=== PATIENT | female | born 1975 | race Asian ===

== ENCOUNTER 2020-10-08 19:30 | Emergency (ER) | payer BC ==
--- NOTE | 2020-10-08 19:45 | ED Physician Documentation ---
PD HPI FEMALE - Stated complaint Stated Complaint: FEMALE - Chief complaint Chief Complaint: Abd Pain - History obtained from History obtained from: Patient - History of Present Illness Timing - onset: How many hours ago (3) Timing - duration: Hours (3) Timing - details: Abrupt onset, Still present Associated symptoms: Vaginal bleeding (She had hysteroscopy about noon today in evaluation of infertility with clearing some scarring and had biopsies. No bleeding at the time. Onset bleeding vaginally 2 pads/hour few hours later. No pelvic cramping.). No: Fever Contributing factors: Other (s/p hysteroscopy today) Similar symptoms before: Has not had sx before Recently seen: Surgery (today) Review of Systems Constitutional: denies: Fever, Chills Nose: denies: Rhinorrhea / runny nose, Congestion Throat: denies: Sore throat Respiratory: denies: Cough : reports: Vaginal bleeding (just today last few hours.). denies: Dysuria, Discharge Neurologic: denies: Generalized weakness, Near syncope PD PAST MEDICAL HISTORY - Past Medical History Cardiovascular: None Respiratory: None Neuro: None Endocrine/Autoimmune: None HAND COLLATOR: Other (infertility) - Allergies Allergies/Adverse Reactions: Allergies Allergy/AdvReac Type Severity Reaction Status Date / Time No Known Drug Allergies Allergy Verified 10/08/20 19:49 - Living Situation Living Situation: reports: With spouse/s.o. 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 There are 2 tenaculum wounds, one at 7 o'clock with minimal bleeding and is point size. 2 o'clock position with 5 mm size laceration with ongoing dribble of bleeding. No FB. ) - Rectal Rectal: Deferred - Back Back: No CVA TTP - Derm Derm: Normal color, Warm and dry Results - Vitals Vitals: Vital Signs - 24 hr 10/08/20 10/08/20 19:37 23:31 Temperature 37.0 C 36.8 C Heart Rate 71 73 Respiratory 18 16 Rate Blood Pressure 122/71 117/67 O2 Saturation 99 100 Oxygen O2 Source Room air - Labs Labs: Laboratory Tests 10/08/20 10/08/20 10/08/20 20:08 20:08 20:08 WBC 8.0 RBC 4.74 Hgb 12.0 Hct 37.9 MCV 80.0 L MCH 25.3 L MCHC 31.7 L RDW 13.2 Plt Count 310 MPV 8.6 Neut # (Auto) 5.3 Lymph # (Auto) 2.2 [place] # (Auto) 0.3 Eos # (Auto) 0.1 Baso # (Auto) 0.0 Absolute Nucleated RBC 0.00 Nucleated RBC % 0.0 PT 10.7 INR 1.0 Sodium 136 Potassium 3.8 Chloride 105 Carbon Dioxide 24 Anion Gap 7.0 BUN 10 Creatinine 0.9 Estimated GFR (MDRD) 68 L Glucose 107 H Calcium 9.1 Total Bilirubin 0.5 AST 13 ALT < 10 L Alkaline Phosphatase 22 L Total Protein 7.0 Albumin 4.0 Globulin 3.0 Albumin/Globulin Ratio 1.3 Lipase 26 Procedures - General procedure General procedure: 4 byI tried direct pressure with 4 pads on a ring forcep as well as tranexamic acid on gauze held directly and then left in place for 15 minutes. It was decreased in the amount of bleeding and silver nitrate with then direct cotton- tipped applicator allowed for apparent stopping of bleeding. We watched her for than 15 or 20 minutes and did another speculum exam which showed the vault full with blood and clots again. I repeated the procedures but could not get it to fully stopped bleeding. It has decreased significantly but is still oozing bleeding. We will consult gynecology and see if they have other sealant/cautery such as Monsel solution which would likely work well. PD MEDICAL DECISION MAKING - ED course Complexity details: re-evaluated patient (The patient still had some bleeding after local direct pressure as well as silver nitrate cautery and direct application of TXA to the site. I would have liked some Monsel solution as this would likely work well there. We will consult to gynecology.), considered differential (consider uterine bleeding versus outer cervix injury from tenaculum. ), d/w patient, d/w PMD (I talked with her Infertility Specialist, who gave some guidance on the scope and biopsies being easy without apparent bleeding. No fibroids. ), d/w devops consultant (Dr. Soriano, who says he will stop at [facility] for some Monsels solution and then come to ER. ) ED course: The bleeding had slowed after initial direct treatments but pretty much stopped after application of Monsel solution with direct pressure by Dr. Casas. The patient is feeling well. No lightheadedness with standing. She feels able for discharge. Departure - Departure Disposition: 01 Home, Self Care Clinical Impression: Vaginal bleeding, Cervical laceration, Status post hysteroscopy Condition: Stable Comments: No vigorous activity for a day or 2. Light activity is okay. No intercourse, tampons or vaginal insertions for the next 3 to 5 days while the wound heals. Stay well-hydrated. Being contact with your infertility specialist tomorrow to update them on how you are doing. Return to the ER if significant bleeding again. Discharge Date/Time: 10/08/20 23:33
[2020-10-08] MEDS ORDERED: SODIUM CHLORIDE 0.9% 1,000 ML IV STA (20:06)
[2020-10-08 20:20] LABS: BASOPHILS % (AUTO) 0.4 %; EOSINOPHILS # (AUTO) 0.1 10^3/uL (0.0-0.7); EOSINOPHILS % (AUTO) 1.3 %; HCT - HEMATOCRIT 37.9 % (37.0-47.0); LYMPHOCYTES # (AUTO) 2.2 10^3/uL (1.5-3.5); LYMPHOCYTES % (AUTO) 27.5 %; MEAN CORPUSCULAR HEMOGLOBIN 25.3 pg (27.0-31.0); MEAN CORPUSCULAR HGB CONC 31.7 g/dL (32.0-36.0); MEAN PLATELET VOLUME 8.6 fL (7.9-10.8); MONOCYTES # (AUTO) 0.3 10^3/uL (0.0-1.0); MONOCYTES % (AUTO) 4.3 %; NEUTROPHILS # (AUTO) 5.3 10^3/uL (1.5-6.6); NEUTROPHILS % (AUTO) 66.2 %; PLT - PLATELET COUNT 310 10^3/uL (130-450); RED BLOOD COUNT 4.74 10^6/uL (4.20-5.40); RED CELL DISTRIBUTION WIDTH 13.2 % (12.0-15.0)
[2020-10-08 20:28] LABS: PT - PROTHROMBIN TIME 10.7 secs (9.9-12.6)
[2020-10-08 20:34] LABS: ALBUMIN/GLOBULIN RATIO 1.3 (1.0-2.2); ALKALINE PHOSPHATASE 22 IU/L (42-121); ALT ALANINE AMINOTRANSFERASE < 10 IU/L (10-60); AST ASPARTATE AMINOTRANSFERASE 13 IU/L (10-42); BILIRUBIN,TOTAL 0.5 mg/dL (0.2-1.0); BUN - BLOOD UREA NITROGEN 10 mg/dL (6-20); CALCIUM 9.1 mg/dL (8.5-10.3); CARBON DIOXIDE - CO2 24 mmol/L (21-32); CHLORIDE 105 mmol/L (101-111); CREATININE 0.9 mg/dL (0.4-1.0); GFR - MDRD 68 (>89); GLUCOSE 107 mg/dL (70-100); LIPASE 26 U/L (22-51); POTASSIUM 3.8 mmol/L (3.5-5.0); SODIUM 136 mmol/L (135-145)
[2020-10-08] MEDS ORDERED: SILVER NITRATE APPLICATOR TOP STA (21:04)
[2020-10-08] MEDS ORDERED: TRANEXAMIC ACID 1,000 MG/10 ML VIAL NAS STA (21:21)
[2020-10-08] MEDS: SILVER NITRATE APPLICATOR TOP STA ×2 (21:31→22:11)
[2020-10-08] MEDS ORDERED: FERRIC SUBSULFATE 8 ML SOLUTION (FOR OR) TOP STA (22:10)
--- NOTE | 2020-10-08 23:17 | CONSULTATION NOTE ---
Referring Provider Consult Date: 10/08/20 History of Present Illness - History of Present Illness HPI Comment/Other: Identification: Patient is a 45-year-old G0, P0 female who presents with vaginal bleeding History of present illness patient was seen today in [place] which time she had a hysteroscopy for infertility. Following this she has had difficulty with bleeding need to change a pad on every 30 minutes. She was seen by the ED doc who treated her with silver nitrate without success. She presents today for further evaluation. I discussed with her and obtained her presents to apply Monsel solution. Meds/Allgy - Allergies Allergies/Adverse Reactions: Allergies Allergy/AdvReac Type Severity Reaction Status Date / Time No Known Drug Allergies Allergy Verified 10/08/20 19:49 Exam - Vital Signs Vital Signs: Vital Signs x48h Temp Pulse Resp BP Pulse Ox 10/08/20 19:37 37.0 C 71 18 122/71 99 - Physical Exam General Appearance: positive: No acute distress, Alert Comments/Other: Vulva impounding inspecting the vulva there is evidence of blood coming through the vaginal canal. Speculum exam was performed at which time the cervix was visualized there was Blood and clots noted to be in the vaginal vault. This was cleansed with 4 x 4's upon inspecting the cervix there was an area of bleeding at 2:00 on the cervix from the laceration from her previous tenaculum placement. This was dried and then silver nitrate on a large scope that was placed over this. It was allowed to maintain pressure for 3 minutes this was then removed and inspected there was a small bubble of blood which recurred so this was skip nicole again with another 3 minutes of Monsel solution. This was watched for roughly 3 minutes afterwards and there is no evidence of any further bleeding. Patient tolerated procedure well. Conclusion/Plan - Diagnosis Diagnosis: Cervical laceration - Plan Plan: Following application of Monsel solution x2 there is no evidence of any further bleeding. This was inspected for at least 5 minutes afterwards and once again no further bleeding was noted. I have instructed the patient that she should not go to work tomorrow she is not to do any heavy lifting. She is to contact her [facility] provider in [place] for further instructions. Should bleeding recur she will need to return. - Lab Results Fish Bones: 10/08/20 20:08 10/08/20 20:08
[2020-10-08 23:32] VITALS: BP 117/67
== END 2020-10-08 23:33 | disposition home or self-care (01) ==
LOC: ED 19:30
DX: S37.63XA Laceration of uterus, initial encounter (principal); N99.71 Accidental puncture and laceration of a genitourinary system organ or structure during a genitourinary system procedure; Y65.8 Other specified misadventures during surgical and medical care; Y76.8 Miscellaneous obstetric and gynecological devices associated with adverse incidents, not elsewhere classified
CPT/HCPCS: 36415; 80053; 83690; 85025; 85610; 99283